=== PATIENT | male | born 1955 | race Caucasian/White ===

== ENCOUNTER 2019-03-24 07:14 | Outpatient (CLI) | payer BC, SELFPAY ==
[2019-03-24 09:10] LABS: Calculated LDL 126 mg/dL; Cholesterol 189 mg/dL (50-200); Glucose 93 mg/dL (70-100); HDL Cholesterol 45 mg/dL (40-60); Triglyceride 90 mg/dL (30-150)
== END 2019-03-24 07:34 ==
PROVIDERS: PCP General Practice; Visit Provider General Practice
DX: Z00.00 Encounter for general adult medical examination without abnormal findings (principal); Z13.1 Encounter for screening for diabetes mellitus; Z13.220 Encounter for screening for lipoid disorders
CPT/HCPCS: 36415; 80061; 82947; 83721

== ENCOUNTER 2019-11-27 16:54 | Outpatient (REF) | payer BC, SELFPAY ==
[2019-11-29 09:10] LABS: COVID-19 RT-PCR UVMMC Result Negative (Negative)
== END 2019-11-27 17:14 ==
LOC: NCHCN 16:54
PROVIDERS: PCP General Practice; Visit Provider Physician Assistant
DX: Z11.59 Encounter for screening for other viral diseases (principal)
CPT/HCPCS: U0003

== ENCOUNTER 2020-01-30 09:19 | Outpatient (REF) | payer BC, SELFPAY ==
[2020-01-30 16:47] LABS: Anion Gap 8.2 mmol/L (3-11); BUN 13 mg/dL (7-18); CO2 28.8 mmol/L (21.0-32.0); CREATININE 1.27 mg/dL (0.70-1.30); Calcium 9.1 mg/dL (8.5-10.1); Chloride 104 mmol/L (98-107); Estimated GFR 57.46 (mL/min/1.73m2); Glucose 94 mg/dL (74-106); Potassium 4.5 mmol/L (3.5-5.1); Sodium 141 mmol/L (136-145)
[2020-01-30 16:57] LABS: Uric Acid 8.1 mg/dL (3.5-7.2)
[2020-02-01 09:17] LABS: PSA, Screening 0.6 ng/mL (0.0-4.5)
== END 2020-01-30 09:39 ==
LOC: NCHCN 09:19
PROVIDERS: PCP Physician Assistant; Visit Provider Physician Assistant
DX: Z00.00 Encounter for general adult medical examination without abnormal findings (principal); Z13.228 Encounter for screening for other metabolic disorders; Z12.5 Encounter for screening for malignant neoplasm of prostate; Z13.89 Encounter for screening for other disorder
CPT/HCPCS: 80048; 84153; 84550

== ENCOUNTER 2020-02-20 10:53 | Outpatient (CLI) | payer BC, SELFPAY ==
--- NOTE | 2020-02-20 10:30 | DI.RAD_ITS ---
EXAM: XR SHOULDER LT COMPLETE 2+V CLINICAL HISTORY: left shoulder pain. TECHNIQUE: 2D digital imaging was performed. COMPARISON: No exams were available for comparison FINDINGS: BONES: No acute fracture is present. No bony destructive lesion is seen. The bones are normally metal miner alized. JOINTS: No dislocation present. [id number] degenerative changes are seen at the acromioclavicul ar joint. The glenohumeral joint appears well maintained. SOFT TISSUE: Normal. IMPRESSION: Degenerative changes of the left shoulder. DATA REPOSITORY: RADIATION DOSE DELIVERED:
== END 2020-02-20 11:13 ==
PROVIDERS: PCP Physician Assistant; Referring Provider Physician Assistant; Visit Provider Student in an Organized Health Care Education/Training Program
DX: M25.512 Pain in left shoulder (principal); M19.012 Primary osteoarthritis, left shoulder
CPT/HCPCS: 73030

== ENCOUNTER 2021-03-17 07:57 | Outpatient (REF) | payer BC, SELFPAY ==
[2021-03-17 15:33] LABS: Anion Gap 10.2 mmol/L (3-11); BUN 12 mg/dL (7-18); CO2 27.8 mmol/L (21.0-32.0); Calcium 8.6 mg/dL (8.5-10.1); Calculated LDL 124 mg/dL (<100); Chloride 107 mmol/L (98-107); Cholesterol 191 mg/dL (<200); Glucose 94 mg/dL (74-106); HDL Cholesterol 43 mg/dL (40-60); Potassium 4.5 mmol/L (3.5-5.1); Sodium 145 mmol/L (136-145); Triglyceride 122 mg/dL (<150)
[2021-03-18 17:33] LABS: PSA, Screening 0.6 ng/mL (0.0-4.5)
== END 2021-03-17 07:58 | disposition home or self-care (01) ==
LOC: NCHCN 07:57
PROVIDERS: PCP Physician Assistant; Visit Provider Physician Assistant
DX: Z00.00 Encounter for general adult medical examination without abnormal findings (principal); Z13.228 Encounter for screening for other metabolic disorders; Z13.220 Encounter for screening for lipoid disorders; Z12.5 Encounter for screening for malignant neoplasm of prostate
CPT/HCPCS: 80048; 80061; 84153

== ENCOUNTER 2021-09-05 15:34 | Outpatient (REF) | payer BC, SELFPAY ==
[2021-09-05 12:55] LABS: Clarity Cloudy; Nucleated Cells 15288 uL (0)
[2021-09-05 13:04] LABS: Mononuclear Cells 19 %; Polynuclear Cells 81 %
== END 2021-09-05 15:35 | disposition home or self-care (01) ==
LOC: NCHCN 15:34
PROVIDERS: PCP Physician Assistant; Visit Provider Family Medicine
DX: M13.862 Other specified arthritis, left knee (principal)
CPT/HCPCS: 89051; 89060

== ENCOUNTER 2021-09-12 17:44 | Outpatient (REF) | payer BC, SELFPAY ==
[2021-09-12 19:50] LABS: Abs Immature Grans 0.02 10^3/uL (0.0-0.06); Absolute Basophil Count 0.02 10^3/uL (0.0-0.2); Absolute Eosinophil Count 0.09 10^3/uL (0.0-0.7); Absolute Lymphocyte Count 1.85 10^3/uL (1.2-3.4); Absolute Monocyte Count 0.62 10^3/uL (0.1-0.8); Absolute Neutrophil Count 4.87 10^3/uL (1.2-6.7); Basophils % 0.3; Eosinophils % 1.2; HCT 40.3 % (40.0-50.0); Immature Grans % 0.3; Lymphocytes % 24.8; MCH 27.7 pg (27.0-33.0); MCHC 32.3 % (32.0-36.0); MCV 85.7 fL (80-95); MPV 10.1 fL (8.0-11.0); Monocytes % 8.3; Neutrophils % 65.1; Nucleated RBC 0 %; Platelet Count 274 10^3/uL (130-400); RDW-SD 40.5 fL; WBC 7.47 10^3/uL (4.4-10.8)
[2021-09-12 20:26] LABS: ALT 39 U/L (16-63); AST 15 U/L (15-37); Albumin 3.8 g/dL (3.4-5.0); Alkaline Phosphatase 81 U/L (46-116); Anion Gap 7.6 mmol/L (3-11); BUN 18 mg/dL (7-18); Bilirubin, Total 0.8 mg/dL (0.2-1.0); CO2 27.4 mmol/L (21.0-32.0); Calcium 8.2 mg/dL (8.5-10.1); Chloride 106 mmol/L (98-107); Glucose 115 mg/dL (74-106); Potassium 4.3 mmol/L (3.5-5.1); Sodium 141 mmol/L (136-145); TSH (W/Ref FT4) 1.25 uIU/mL (0.36-3.74); Total Protein 6.9 g/dL (6.4-8.2)
== END 2021-09-12 17:45 | disposition home or self-care (01) ==
LOC: LBN 17:44
PROVIDERS: PCP Physician Assistant; Visit Provider Family Medicine
DX: R63.4 Abnormal weight loss (principal)
CPT/HCPCS: 80053; 84443; 85025

== ENCOUNTER 2021-09-29 12:42 | Outpatient (CLI) | payer BC, SELFPAY ==
--- NOTE | 2021-09-29 | DI.RAD_ITS ---
Exam(s) XR KNEE LT 3V AP,LAT,TODD EXAM: XR KNEE LT 3V AP,LAT,TODD CLINICAL HISTORY: LT KNEE ARTHRITIS,M13.862. TECHNIQUE: 2D digital imaging was performed. COMPARISON: No exams were available for comparison FINDINGS: BONES: No acute fracture is present. No bony destructive lesion is seen. JOINTS: The knee is normally aligned. No joint effusion is seen. No significant joint space narrowing . Minimal periarticular spurring. SOFT TISSUE: Normal. IMPRESSION: Minimal degenerative changes. DATA REPOSITORY: RADIATION DOSE DELIVERED:
== END 2021-09-29 13:02 ==
PROVIDERS: PCP Physician Assistant; Visit Provider Physician Assistant
DX: M25.562 Pain in left knee (principal); M13.862 Other specified arthritis, left knee
CPT/HCPCS: 73562

== ENCOUNTER 2022-03-17 15:11 | Outpatient (REF) | payer BC, SELFPAY ==
[2022-03-17 16:46] LABS: Anion Gap 8.4 mmol/L (3-11); BUN 13 mg/dL (7-18); CO2 28.6 mmol/L (21.0-32.0); CREATININE 0.8 mg/dL (0.70-1.30); Calcium 8.6 mg/dL (8.5-10.1); Calculated LDL 132 mg/dL (<100); Chloride 103 mmol/L (98-107); Cholesterol 197 mg/dL (<200); Glucose 101 mg/dL (74-106); HDL Cholesterol 49 mg/dL (40-60); Potassium 4.3 mmol/L (3.5-5.1); Sodium 140 mmol/L (136-145); Triglyceride 83 mg/dL (<150)
[2022-03-17 23:44] LABS: PSA, Screening 0.6 ng/mL (<=4.5)
== END 2022-03-17 15:12 | disposition home or self-care (01) ==
LOC: NCHCN 15:11
PROVIDERS: PCP Physician Assistant; Visit Provider Physician Assistant
DX: E83.51 Hypocalcemia (principal); M10.9 Gout, unspecified; E78.5 Hyperlipidemia, unspecified; Z12.5 Encounter for screening for malignant neoplasm of prostate
CPT/HCPCS: 80048; 80061; 84153; 84550

== ENCOUNTER 2023-02-22 16:04 | Outpatient (REF) | payer BC, SELFPAY ==
[2023-02-22 15:10] LABS: ALT 37 U/L (16-63); AST 28 U/L (15-37); Albumin 4.1 g/dL (3.4-5.0); Alkaline Phosphatase 80 U/L (46-116); Anion Gap 11.2 mmol/L (3-11); BUN 12 mg/dL (7-18); Bilirubin, Total 1.1 mg/dL (0.2-1.0); CO2 24.8 mmol/L (21.0-32.0); Calcium 8.5 mg/dL (8.5-10.1); Chloride 106 mmol/L (98-107); Estimated GFR 83.52 (mL/min/1.73m2); Glucose 103 mg/dL (74-106); Potassium 4.1 mmol/L (3.5-5.1); Sodium 142 mmol/L (136-145); Total Protein 7.4 g/dL (6.4-8.2); Uric Acid 7.6 mg/dL (3.5-7.2)
[2023-02-22 15:25] LABS: Calculated LDL 138 mg/dL (<100); Cholesterol 216 mg/dL (<200); HDL Cholesterol 48 mg/dL (40-60); Triglyceride 151 mg/dL (<150)
[2023-02-22 23:27] LABS: PSA, Screening 0.6 ng/mL (<=4.5)
[2023-02-23 09:23] LABS: Cyclic Citrullinated Peptide 104.7 U/mL (<5.0)
== END 2023-02-22 16:05 | disposition home or self-care (01) ==
LOC: NCHCN 16:04
PROVIDERS: PCP Physician Assistant; Visit Provider Physician Assistant
DX: M25.50 Pain in unspecified joint (principal); E78.5 Hyperlipidemia, unspecified; Z12.5 Encounter for screening for malignant neoplasm of prostate; R79.89 Other specified abnormal findings of blood chemistry; M10.9 Gout, unspecified
CPT/HCPCS: 80053; 80061; 84153; 86200; 84550; 86431

== ENCOUNTER → 2023-06-09 18:16 | Outpatient (CLI) | payer BC, SELFPAY ==
--- NOTE | 2023-06-09 | DI.RAD_ITS ---
Exam(s) XR KNEE RT 3V AP,LAT,TODD EXAM: XR KNEE RT 3V AP,LAT,TODD CLINICAL HISTORY: Ongoing rt knee pain. TECHNIQUE: 2D digital imaging was performed. COMPARISON: CR XR KNEE LT 3V AP,LAT,TODD from 09/29/2021 FINDINGS: 3 views No evidence of fracture but there is a joint effusion which probably signifies internal derangement. No joint space narrowing. No osteophytes. No osteochondral defects. Bone density is normal. IMPRESSION: No significant osseous findings but there is a joint effusion which may signify an internal derangeme nt. If clinically indicated follow-up MRI can be performed. DATA REPOSITORY: RADIATION DOSE DELIVERED:
== END ==
PROVIDERS: PCP Physician Assistant; Visit Provider Physician Assistant Medical
DX: M25.561 Pain in right knee (principal)
CPT/HCPCS: 73562

== ENCOUNTER → 2023-08-23 00:50 | Outpatient (CLI) | payer BC, SELFPAY ==
--- NOTE | 2023-08-23 | ETT_ITS ---
APPROVED REPORT Exam: Exercise Treadmill Patient Location: Out-Patient Room/Bed: Stress Nurse: Carri Ellis RN Ordering Provider:CHANELLYSABEL MCGREGOR, Contact Number: [phone] BMI: 30.84 Baseline Rhythm: Sinus Bradycardia Indications: Dizziness Medical History Medical History: TONY, depression, gout, HLD Cardiac Medications: Atorvastatin, cyclobenzaprine, infomethacin Allergies: NKA Cardiac Risk Factors: Family Hx, Former Smoker, HLD Previous Cardiac Procedures: None Pretest Chest Pain Characteristics: None Exercise History: Indeterminate Physical Disabilities: None Lung Sounds: Clear to auscultation Heart Sounds: Regular Stress Test Details Test: Exercise stress testing was performed using a Michael protocol. Rest Stress HR Resting HR Supine: 53 bpm Max Heart Rate (APMHR): 154 bpm Resting HR Standin bpm Target HR (85% APMHR): 131 bpm Max HR Achieved: 145 bpm % of APMHR: 94 Recovery HR: 88 bpm HR response to stress: Normal HR response to stress BP Resting BP Supine: 140/82 mmHg Resting BP Standin/76 mmHg Max BP: 172/72 mmHg Recovery BP: 150/84 mmHg BP response to stress: Normal blood pressure response to stress. ECG Resting ECG: Sinus Bradycardia Ectopy: PACs Stress ECG: Sinus Rhythm, Sinus Tachycardia ST Change: No significant ST segment changes noted Arrhythmia: VPC's, APC's Comment: couplets, multifocal Recovery ECG: Sinus Rhythm Recovery ST Change: No significant ST segment changes noted Recovery Arrhythmia: APC, VPC Clinical Reason for Termination: Target HR Achieved Stress Symptoms: Dizziness Exercise duration: 10 min48 sec Highest Stage Reached: Stage 4: 4.2 mph at 16% grade. Exercise capacity: 13.14 METs Angina Score: None Beverly Treadmill Score: 10.4 Rate Pressure Product: [id number] Stress ECG Conclusion 1. 1. Normal clinical,BP and ECG responses 2. 2. Negative for inducible ischemia. Beverly Treadmill Score is 10.4 which is Low risk. Stress Test Summary STAGE Time (mins) Speed (mph) Grade (%) HR BP SpO2 SYMPTOMS METS Supine 53 140/82 96 Standing 55 132/76 96 1 3 1.7 10 107 132/82 98 4.5 2 6 2.5 12 101 142/80 99 7 3 9 3.4 14 118 150/84 98 10 1 min recovery 130 172/72 98 dizziness 3 min recovery 89 152/82 99 dizziness subsided 6 min recovery 88 150/84 98 Exercise test was stopped related to inability to accurately read ECG from artifact.
== END ==
PROVIDERS: PCP Physician Assistant; Visit Provider Physician Assistant
DX: R42 Dizziness and giddiness (principal)
CPT/HCPCS: 93017

== ENCOUNTER 2024-01-19 13:50 | Outpatient (REF) | payer BC, SELFPAY ==
[2024-01-19 15:31] LABS: Calculated LDL 103 mg/dL (<100); Cholesterol 178 mg/dL (<200); HDL Cholesterol 54 mg/dL (40-60); Triglyceride 105 mg/dL (<150); Vitamin B12 341 pg/mL (193-986)
== END 2024-01-19 13:51 | disposition home or self-care (01) ==
LOC: NCHCN 13:50
PROVIDERS: PCP Physician Assistant; Visit Provider Physician Assistant
DX: E78.5 Hyperlipidemia, unspecified (principal); R26.89 Other abnormalities of gait and mobility; G62.9 Polyneuropathy, unspecified
CPT/HCPCS: 80061; 82607

== ENCOUNTER 2024-04-18 03:21 | Outpatient (CLI) | payer BC, SELFPAY ==
[2024-04-18 17:08] LABS: ALT 45 U/L (16-63); AST 27 U/L (15-37); Alkaline Phosphatase 76 U/L (46-116); Anion Gap 10.8 mmol/L (3-11); BUN 12 mg/dL (7-18); Bilirubin, Total 0.72 mg/dL (0.2-1.0); CO2 25.2 mmol/L (21.0-32.0); CREATININE 1.1 mg/dL (0.70-1.30); Calcium 8.9 mg/dL (8.5-10.1); Chloride 105 mmol/L (98-107); Estimated GFR 74.04 (mL/min/1.73m2); Glucose 90 mg/dL (74-106); Potassium 3.8 mmol/L (3.5-5.1); Sodium 141 mmol/L (136-145); Total Protein 7.3 g/dL (6.4-8.2); Uric Acid 4.7 mg/dL (3.5-7.2)
[2024-04-18 17:38] LABS: Iron 53 ug/dL (65-175); Total Iron Binding Capacity 375 ug/dL (250-450); Transferrin Sat 14 % (20-55)
[2024-04-18 17:53] LABS: Ferritin 35 ng/mL (26-388)
== END 2024-04-18 03:22 | disposition home or self-care (01) ==
PROVIDERS: PCP Physician Assistant; Visit Provider Student in an Organized Health Care Education/Training Program
DX: M10.9 Gout, unspecified (principal); D64.9 Anemia, unspecified
CPT/HCPCS: 36415; 80053; 82728; 83540; 83550; 84550

== ENCOUNTER 2024-05-22 10:51 | Outpatient (CLI) | payer BC, SELFPAY ==
[2024-05-22 11:28] LABS: Hemoglobin A1C 5.7 % (<5.7)
[2024-05-22 12:08] LABS: TSH (W/Ref FT4) 2.09 uIU/mL (0.36-3.74)
[2024-05-23 13:11] LABS: Albumin 63.7 % (55.8-66.1); Albumin g/dL 4.5 g/dL (3.6-5.2)
== END 2024-05-22 10:52 | disposition home or self-care (01) ==
LOC: LBO 10:51
PROVIDERS: PCP Physician Assistant; Visit Provider Psychiatry & Neurology Neurology
DX: G62.9 Polyneuropathy, unspecified (principal); R73.9 Hyperglycemia, unspecified
CPT/HCPCS: 36415; 83036; 84165; 84443

== ENCOUNTER 2025-05-28 11:03 | Outpatient (REF) | payer MEDICARE, SELFPAY ==
[2025-05-28 15:50] LABS: Hemoglobin A1C 5.4 % (<5.7)
[2025-05-28 16:53] LABS: ALT 43 U/L (16-63); AST 31 U/L (15-37); Albumin 4.0 g/dL (3.4-5.0); Alkaline Phosphatase 89 U/L (46-116); Anion Gap 8.1 mmol/L (3-11); BUN 12 mg/dL (7-18); Bilirubin, Total 0.8 mg/dL (0.2-1.0); CO2 29.9 mmol/L (21.0-32.0); Calcium 8.9 mg/dL (8.5-10.1); Chloride 104 mmol/L (98-107); Estimated GFR 93.61 (mL/min/1.73m2); Glucose 82 mg/dL (74-106); Potassium 4.1 mmol/L (3.5-5.1); Sodium 142 mmol/L (136-145); Total Protein 6.9 g/dL (6.4-8.2); Vitamin B12 887 pg/mL (193-986)
[2025-05-28 17:11] LABS: Uric Acid 5.3 mg/dL (3.5-7.2)
== END 2025-05-28 11:04 | disposition home or self-care (01) ==
LOC: NCHCN 11:03
PROVIDERS: PCP Physician Assistant; Visit Provider Physician Assistant
DX: E78.5 Hyperlipidemia, unspecified (principal); R73.03 Prediabetes; M10.9 Gout, unspecified; E53.8 Deficiency of other specified B group vitamins
CPT/HCPCS: 80053; 82607; 83036; 84550

== ENCOUNTER → 2025-06-20 10:47 | Outpatient (BNVA) | payer MEDICARE, SELFPAY | PROVIDERS: PCP Physician Assistant; Referring Provider Physician Assistant; Visit Provider Podiatrist | DX: M79.671 Pain in right foot (principal); M79.672 Pain in left foot; G62.9 Polyneuropathy, unspecified; G57.62 Lesion of plantar nerve, left lower limb | CPT/HCPCS: 99213 ==